=== PATIENT | male | born 1965 | race Caucasian/White ===

== ENCOUNTER 2018-04-18 17:47 | Inpatient (IN) | payer BC ==
[~2018-04-18] VITALS: Ht 152.4 cm; Wt 166.5 kg
[~2018-04-18 17:47] MED LIST: ACCOLATE20 MG PO; ALEVE220 M1 PO; B COMPLETE1 EAC1 PO; BAYER CHEWABLE81 MG PO; BENADRYL25 MG PO; BYSTOLIC 5 MG5 M1 PO; CENTRUM SILVER1 EAC4 PO; CINNAMON500 MG PO; CO Q-10100 MG PO; COQ-10100 MG PO; DEPO-TESTO200 MG/1 M IM; DYMISTA NASAL S23 GM NASAL; GLUCOSAMINE HC500 MG PO; LEVAQUIN 500 M500 M2 PO; MILK THISTLE500 MG PO; MULTIVITAMINS PO; NIACIN SR 250250 MG PO; Niacin PO; OIL OF OREGAN1500 MG PO; OMEGA-31000 M1 PO; OSTEO BI-FLEX1 EAC3 PO; TESTOSTERO200 MG/11 IM; TRIBENZOR 40-11 EAC1 PO; VITAMIN D-32000 UNIT PO; VITAMIN D35000 UNI1 PO; ZOCOR20 MG PO; ZYRTEC10 MG PO
[2018-04-18 18:00] VITALS: BP 112/75
[2018-04-18] MEDS ORDERED: CRESTOR10 MG PO (18:35)
[2018-04-18] MEDS ORDERED: FLONASE 0.05%50 MCG NASAL (18:36)
[2018-04-18] MEDS ORDERED: MAGOX 400400 MG PO (18:38)
[2018-04-18] MEDS ORDERED: CURCUMIN1 GM PO (18:38)
[2018-04-18 19:25] LABS: ABSOLUTE LYMPHOCYTES 0.4 thou/uL (0.8-5.3); ABSOLUTE MONOCYTES 0.5 thou/uL (0.0-1.2); ABSOLUTE NEUTROPHILS 2.1 thou/uL (1.6-8.1); BASOPHILS 0.3 %; EOSINOPHILS 0.1 %; HEMATOCRIT 48.6 % (42.0-52.0); HEMOGLOBIN 16.6 gm/dL (14.0-18.0); LYMPHOCYTES 13.4 %; MCH 31.3 pg (26.0-34.0); MCHC 34.3 g/dL (28.0-37.0); MCV 91.2 fL (80.0-100.0); MONOCYTES 16.3 %; MPV 8.8 fl. (7.2-11.1); NUCLEATED RBCS 0 /100WBC; PLATELET COUNT* 219 thou/uL (150-400); POLYS 69.9 %; RBC 5.33 mil/uL (4.50-6.00); RDW-CV 14.4 % (10.5-14.5)
[2018-04-18 19:30] LABS: ANION GAP 9 mmol/L (7-16); BUN 22 mg/dL (7-18); CALCIUM 8.9 mg/dL (8.5-10.1); CHLORIDE 97 mmol/L (98-107); CO2 27 mmol/L (21-32); CREATININE 1.2 mg/dL (0.6-1.3); GLUCOSE 150 mg/dL (70-99); POTASSIUM 3.4 mmol/L (3.5-5.1); SODIUM 133 mmol/L (136-145)
[2018-04-18 19:41] LABS: ALBUMIN 3.5 g/dL (3.4-5.0); ALKALINE PHOSPHATASE 57 U/L (46-116); LIPASE 262 U/L (73-393); SGOT 77 U/L (15-37); SGPT 101 U/L (30-65); TOTAL BILIRUBIN 0.6 mg/dL (<0.1-1.0); TOTAL PROTEIN 7.9 g/dL (6.4-8.2); TROPONIN-I LEVEL <0.06 ng/mL (<0.06)
[2018-04-18 20:31] LABS: URINE BILIRUBIN NEGATIVE (Negative); URINE BLOOD NEGATIVE (Negative); URINE CLARITY CLEAR; URINE COLOR YELLOW; URINE GLUCOSE-RANDOM NEGATIVE (Negative); URINE KETONES NEGATIVE (Negative); URINE LEUKOCYTES-REFLEX NEGATIVE (Negative); URINE NITRITE-REFLEX NEGATIVE (Negative); URINE PROTEIN 1+ (Negative); URINE SPECIFIC GRAVITY >= 1.030 (1.005-1.030); URINE UROBILINOGEN 0.2 E.U./dl (0.2-1.0)
[2018-04-18 20:32] LABS: SQUAMOUS 0-3 Few /LPF (0-3)
[2018-04-18 20:33] LABS: BACTERIA-REFLEX 1-9 Few /HPF (None Seen); CRYSTALS None Seen /LPF (None Seen); HYALINE CASTS 0-3 Few /LPF (None Seen); URINE RBC 0-2 Rare /HPF (0-2); URINE WBC-REFLEX 0-5 Rare /HPF (0-5)
[2018-04-18 22:10] VITALS: BP 130/72
[2018-04-18 22:30] VITALS: BP 130/66
[2018-04-19 05:54] LABS: ABSOLUTE LYMPHOCYTES 0.5 thou/uL (0.8-5.3); ABSOLUTE MONOCYTES 0.7 thou/uL (0.0-1.2); ABSOLUTE NEUTROPHILS 3.6 thou/uL (1.6-8.1); BASOPHILS 0.5 %; EOSINOPHILS 0.1 %; HEMATOCRIT 47.1 % (42.0-52.0); HEMOGLOBIN 15.9 gm/dL (14.0-18.0); LYMPHOCYTES 10.3 %; MCH 30.8 pg (26.0-34.0); MCHC 33.7 g/dL (28.0-37.0); MCV 91.3 fL (80.0-100.0); MONOCYTES 14.3 %; MPV 9.1 fl. (7.2-11.1); NUCLEATED RBCS 0 /100WBC; PLATELET COUNT* 215 thou/uL (150-400); POLYS 74.8 %; RBC 5.16 mil/uL (4.50-6.00); RDW-CV 14.4 % (10.5-14.5); WBC 4.8 thou/uL (4.0-11.0)
[2018-04-19 06:25] LABS: ALBUMIN 3.2 g/dL (3.4-5.0); CALCIUM 8.6 mg/dL (8.5-10.1); POTASSIUM 3.7 mmol/L (3.5-5.1); TOTAL BILIRUBIN 0.7 mg/dL (<0.1-1.0); TOTAL PROTEIN 7.1 g/dL (6.4-8.2)
[2018-04-19 06:30] LABS: CREATININE 2.2 mg/dL (0.6-1.3)
[2018-04-19 08:00] VITALS: BP 123/64
--- NOTE | 2018-04-19 10:48 | EKG ---
[place] [address] ELECTROCARDIOGRAM REPORT Name: JARED VILLANUEVA Room: [address] ADM IN .R.#: [id number] Admission: 04/18/18 Attend Phys: Funmilayo Sutton MD Discharge: Date of : 67 Report #: [id number] THIS REPORT FOR: //name// [facility] ED Test Date: 2018-04-18 Test Time: 19:14:13 Pat Name: JARED VILLANUEVA Department: Room: [facility] Gender: M Photo Lab Technician: AP : 1965 Requested By: Jennifer Jeter Order Number: [id number] MD: Ulises Galaviz Measurements Intervals [place] Rate: 75 P: 46 NE: 173 QRS: 31 QRSD: 104 T: 54 QT: 377 QTc: 421 Interpretive Statements Sinus rhythm Baseline wander in lead(s) V6 Compared to ECG 11/14/2013 12:55:17 T-wave abnormality no longer present Electronically Signed On 04-19-2018 10:48:09 EVENTS AND PROMOTIONS ASSISTANT by Ulises Galaviz [email or web address] <ELECTRONICALLY SIGNED> By: Ulises Galaviz MD, FAC 04/19/18 1048 [id number] 13 Ulises Galaviz MD, MERGED WITH [facility] /EPI
[2018-04-19 11:32] VITALS: BP 135/63
[2018-04-19 19:45] VITALS: BP 138/53
[2018-04-19 23:08] LABS: GLYCOHEMOGLOBIN (HGB A1C) 7.4 % (4.8-5.6)
[2018-04-20 04:51] LABS: HEMATOCRIT 43.4 % (42.0-52.0); HEMOGLOBIN 14.6 gm/dL (14.0-18.0); MCH 30.9 pg (26.0-34.0); MCHC 33.7 g/dL (28.0-37.0); MCV 91.6 fL (80.0-100.0); MPV 8.7 fl. (7.2-11.1); RBC 4.74 mil/uL (4.50-6.00); RDW-CV 14.6 % (10.5-14.5); WBC 4.2 thou/uL (4.0-11.0)
[2018-04-20 05:29] LABS: CALCIUM 8.1 mg/dL (8.5-10.1); MAGNESIUM 2.4 mg/dL (1.8-2.4); PHOSPHORUS* 3.4 mg/dL (2.5-4.9); POTASSIUM 3.4 mmol/L (3.5-5.1); TOTAL BILIRUBIN 0.5 mg/dL (<0.1-1.0); TOTAL PROTEIN 6.9 g/dL (6.4-8.2)
[2018-04-20 07:30] VITALS: BP 115/53
[2018-04-20 09:08] LABS: HEPATITIS B SURFACE AG Negative (Negative)
[2018-04-20 15:36] VITALS: BP 119/59
[2018-04-20 20:00] VITALS: BP 136/70
[2018-04-21 04:34] VITALS: BP 121/47
[2018-04-21 07:47] LABS: HEMATOCRIT 42.5 % (42.0-52.0); HEMOGLOBIN 14.2 gm/dL (14.0-18.0); MCH 30.3 pg (26.0-34.0); MCHC 33.3 g/dL (28.0-37.0); MPV 8.5 fl. (7.2-11.1); RBC 4.67 mil/uL (4.50-6.00); RDW-CV 14.4 % (10.5-14.5); WBC 5.3 thou/uL (4.0-11.0)
[2018-04-21 08:00] VITALS: BP 145/72
[2018-04-21 08:12] LABS: ALBUMIN 2.8 g/dL (3.4-5.0); CALCIUM 8.3 mg/dL (8.5-10.1); CREATININE 1.2 mg/dL (0.6-1.3); MAGNESIUM 2.3 mg/dL (1.8-2.4); PHOSPHORUS* 2.6 mg/dL (2.5-4.9); POTASSIUM 3.6 mmol/L (3.5-5.1); TOTAL BILIRUBIN 0.5 mg/dL (<0.1-1.0); TOTAL PROTEIN 6.5 g/dL (6.4-8.2)
[2018-04-21 12:11] VITALS: BP 130/60
[2018-04-21] MEDS ORDERED: PROTONIX40 M1 PO (14:50)
[2018-04-21 15:19] VITALS: BP 130/60
== END 2018-04-21 16:11 | disposition home or self-care (01) | DRG 390 ==
LOC: M.ERS 17:47 → M.2W 21:03 → M.TBA-ER 21:03 → M.2W 21:58
PROVIDERS: Emergency Medicine; Nurse Practitioner Family; ADMIT Internal Medicine
PROC: 5A09357 Assistance with Respiratory Ventilation, Less than 24 Consecutive Hours, Continuous Positive Airway Pressure (ICD-10-PCS; principal; 2018-04-18)
DX: K56.600 Partial intestinal obstruction, unspecified as to cause (principal); E78.5 Hyperlipidemia, unspecified; K21.9 Gastro-esophageal reflux disease without esophagitis; G47.33 Obstructive sleep apnea (adult) (pediatric); E87.6 Hypokalemia; I10 Essential (primary) hypertension; J45.909 Unspecified asthma, uncomplicated; Z79.51 Long term (current) use of inhaled steroids; Z79.82 Long term (current) use of aspirin; Z79.899 Other long term (current) drug therapy

== ENCOUNTER 2020-12-24 21:13 | Emergency (ER) | payer OTHER, BC ==
[~2020-12-24] VITALS: Ht 175.3 cm; Wt 154.2 kg
[~2020-12-24 21:13] MED LIST changes: +CRESTOR10 MG PO; +CURCUMIN1 GM PO; +FLONASE 0.05%50 MCG NASAL; +MAGOX 400400 MG PO; +PROTONIX40 M1 PO
[2020-12-25] MEDS ORDERED: MELOXICAM15 MG PO (00:38)
[2020-12-25 01:04] VITALS: BP 183/79
== END 2020-12-25 01:05 | disposition home or self-care (01) ==
LOC: M.ERS 21:13
DX: S69.92XA Unspecified injury of left wrist, hand and finger(s), initial encounter (principal); X58.XXXA Exposure to other specified factors, initial encounter; Y93.89 Activity, other specified; Y92.89 Other specified places as the place of occurrence of the external cause; Y99.8 Other external cause status